=== PATIENT | female | born 1990 | race Caucasian/White ===

== ENCOUNTER 2020-01-19 04:58 | Inpatient (IN) | payer MEDICAID, SELFPAY ==
--- NOTE | 2020-01-12 09:54 | P.ANESASSM_ITS ---
Pre-Anesthetic Assessment Pre-Anesthetic Assessment: Preop Diagnosis: IUP Proposed Procedure: Operation Date: 01/19/20 07:00 Proposed Procedures p Section Repeat With Tubal(Not Applicable) - Rinku Hale MD Familial anesthetic complications: None Social: Social History: No alcohol and No tobacco Exam: Pre-Anes Outpt Exam: alert, oriented x 3, clear to auscultation bilaterally and regular rate & rhythm Airway: Cervical ROM: WNL MP: 2 Dentition: Full Anesthetic Plan: ASA status: 2 Anesthesia: Regional (specify below) (sp inal) Risk of > 500 ml blood loss (7ml/kg in children): Yes, adequate IV access and fluids planned Data Anesthesia Cardiac Studies: No Data to Display
[2020-01-19] VITALS (27 sets, daily range): BP systolic 101–141; BP diastolic 59–82; PULSE 71–109; RESP 14–20; TEMP 36.2–36.8; O2SAT 94–99; BMI 40.1
[2020-01-19 05:39] LABS: Basophils # 0.1 10^3/uL (0.0-0.1); Basophils % 0.6 %; Eosinophils # 0.2 10^3/uL (0.0-0.8); Hematocrit 33.8 % (37.0-47.0); Hemoglobin 10.6 g/dL (11.5-15.3); Lymphocytes # 1.7 10^3/uL (0.8-4.8); Lymphocytes % 22.1 %; Mean Corpuscular HGB Conc 31.4 g/dL (30.0-36.0); Mean Corpuscular Hemoglobin 25.7 pg (28.0-34.0); Mean Platelet Volume 10.4 fL (7.4-10.4); Monocytes # 0.6 10^3/uL (0.2-0.9); Neutrophils # 5.35 10^3/uL (1.8-7.7); Neutrophils % 68.2 %; Nucleated Red Blood Cells % 0 %; Platelet Count 213 10^3/cmm (130-400); Red Blood Count 4.12 10^6/uL (4.1-5.3); Red Cell Distribution Width 14.5 % (12.1-15.1); White Blood Count 7.9 10^3/uL (4.0-10.0)
--- NOTE | 2020-01-19 06:27 | P.HP_ITS ---
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 She is presenting for a repeat section and a bilateral tubal ligation. Her has been unremarkable. Her blood type is B+. She is GBS negative. She is COVID negative. Her glucose screen was within normal limits. The remainder of her labs were within normal limits as well. She has been no concerns during her . Her due date is based on a first trimester ultrasound. We have discussed the risks and alternatives to a repeat section as well as a bilateral tubal ligation. Present Details : 3 Para: 2 Labs Rubella: Immune RPR: Negative GBS: Negative Review of Systems General: Reports: 10 or more systems reviewed and unremarkable except in HPI and below Const: Denies: fever(s) Card: Denies: chest pain or irregular heart rhythm Resp: Denies: dyspnea GI: Reports: heartburn : Reports: other (Vaginal pressure) Medications/Allergies Allergies Allergy/AdvReac Type Severity Reaction Status Date / Time No Known Drug Allergies Allergy NONE Verified 01/19/20 05:28 Vitals/I&O/Wt Last Vital Signs Temp 97.8 F 01/19/20 05:16 Pulse 100 01/19/20 05:49 BP 126/69 01/19/20 05:49 Weight last 48 hrs Weight 256 lb Physical Exam Const: COMMON NORMALS: no acute distress and patient oriented x3 GENERAL APPEARANCE: cooperative, comfortable and well developed HENMT: COMMON NORMALS: normocephalic and moist oral mucous membranes HEAD & SCALP: normocephalic Chest: COMMONS NORMALS: normal inspection of the chest Resp: COMMON NORMALS: normal respiratory effort and clear to auscultation bilaterally AUSCULTATION: clear to auscultation bilaterally Cardio: COMMON NORMALS: regular rate, regular rhythm, No gallops present (Cardio), No murmurs present (Cardio) and No rub (Cardio) RATE: regular rate RHYTHM: regular rhythm Extremity: COMMON NORMALS: normal to inspection Neuro: COMMON NORMALS: patient oriented x3 and no focal motor deficits Skin: COMMON NORMALS: no rashes or lesions noted GENERAL SKIN EXAM: no rashes or lesions noted Data : 01/19/20 05:25 A&P Assessment and plan (1) Previous section: Status: Acute (2) 39 weeks gestation of : Status: Acute (3) Sterilization consult: Status: Acute Attestations Medical Necessity Statement*: I anticipate routine and post C- section care Coding Level of Care Code Acute 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
[2020-01-19] MEDS: lactated ringers 1,000 ML 125 ML IV (06:43)
[2020-01-19] MEDS: citric acid-sodium citrate 30 mL UDC PO (06:46)
[2020-01-19] MEDS: famotidine 20 mg/2 mL INJ IVP (06:47)
[2020-01-19] MEDS: metoclopramide 5 mg/mL SDV 2 mL 10 MG IVP (06:47)
[2020-01-19] MEDS: lactated ringers 1,000 ML 999 ML IV (06:49)
--- NOTE | 2020-01-19 07:02 | PC.NURSE ---
Pt to OR at this time.
--- NOTE | 2020-01-19 08:25 | PM.OP ---
Operative Report Date of procedure: January 19, 2020 Pre-op Diagnosis: IUP, previous , desires sterilization, 39 weeks Post-op diagnosis: same Procedure Done: 1. Repeat lower transverse section 2. Intraoperative bilateral tubal ligation using a modified Dafne technique Specimens removed/disposition: 1. Female with a weight of 7 pounds 1 ounces and Apgars of 8 9 2. Placenta with a three-vessel cord delivered intact 3. Bilateral fallopian tube segments with the right segment being tagged Pathology: other (Bilateral fallopian tube segments with the right segment being tagged) Surgeon: Rinku Hale Anesthesia: Other (Spinal) Estimated blood loss (mL): 600 Condition: stable Disposition: floor (OB) Brief History: Refer to history and physical Procedure: The patient was brought back to the operating room where she was prepped and draped in usual sterile fashion. Anesthesia was found to be adequate. A lower transverse skin incision was then made with a #10 blade. I then dissected down to the underlying subcutaneous tissue until arriving at the prerectal fascia. The fascia was then nicked with the scalpel bilaterally. The fascial incisions were then carried laterally with Conteh scissors. Attention was then turned to the superior aspect of the incision which was grasped with kochers and tented up away from the underlying rectus abdominis muscles. The muscles were then dissected away from the fascia manually, and later with Conteh scissors. Attention was then turned to the inferior aspect of the incision, and the fascia was dissected away from the underlying muscle in similar fashion. The rectus abdominis muscles were then spread manually. The peritoneum was entered manually. Excellent visualization of the uterus was noted. A lower transverse uterine incision was then made with a #10 blade. Upon arriving at the intrauterine cavity, the uterine incision was then extended manually. The was noted to be in vertex position. I had some difficulty delivering the head, as result used a vacuum. I had 3 consecutive pull offs without delivery of the head. I was unable to maneuver the head with uterine pressure to deliver the head and the baby. There was no meconium. But the baby did pass meconium shortly after delivery. There was a nuchal cord x1.. The cord was cut and clamped. The mouth and nose were suctioned. The baby was then handed to the waiting nurse. The placenta was removed intact. The intrauterine cavity was cleansed of any remaining debris. The uterine incision was reapproximated in 2 layers. The first layer was performed with 0 Vicryl in a running locked stitch. The second layer was an imbricating stitch also using 0 Vicryl. Attention was then turned to the fallopian tubes for the tubal ligation. The right tube was identified and followed through to the fimbria. I then ligated cut and cauterized the fallopian tube with oh plain in a modified Dafne fashion. Attention was then turned to the left fallopian tube which was once again followed through the fimbria and ligated cut and cauterized in similar fashion. The peritoneum was then irrigated with warm saline. I reexamined the uterine incision and found it to be hemostatic. The rectus abdominis muscles were then reapproximated using 0 Vicryl in a running stitch. The fascia was then reapproximated using 0 Vicryl in running stitch. The subcutaneous tissue was then reapproximated using 0 Vicryl in a running stitch. 4-0 Vicryl was then used in a subcuticular stitch to reapproximate the skin. Steri-Strips were placed. A sterile dressing was placed. All counts were correct x2. Both the mother and baby were in stable condition.
[2020-01-19] MEDS: dextrose 5%-lactated ringers 1,000 ML 125 ML IV (11:24)
[2020-01-19] MEDS: ketorolac 30 mg/mL INJ IVP (16:02)
[2020-01-19] MEDS: docusate sodium 100 mg Capsule PO (18:07)
[2020-01-19 20:58] LABS: Hematocrit 30.3 % (37.0-47.0); Hemoglobin 9.4 g/dL (11.5-15.3); Mean Corpuscular Volume 83.9 fL (81-99); Mean Platelet Volume 10.6 fL (7.4-10.4); Platelet Count 220 10^3/cmm (130-400); Red Blood Count 3.61 10^6/uL (4.1-5.3); Red Cell Distribution Width 14.4 % (12.1-15.1); White Blood Count 12.9 10^3/uL (4.0-10.0)
[2020-01-20 04:00] VITALS: BP 106/55; PULSE 80; RESP 16
--- NOTE | 2020-01-20 07:57 | PM.OBGYDC ---
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 The procedure was unremarkable. Her postoperative course was also unremarkable. Her bleeding has been within normal limits. Her urine output has been good. Her vitals have been good. She will advance her diet today. And as long as she passes gas today, we will let her go home this afternoon or evening. Information Peripartum Data: Delivery Method: Section Physical Exam Narrative: EXAM NARRATIVE: She is in no acute distress Lungs are clear auscultation bilaterally Her heart has a regular rate and rhythm Her fundus is below the umbilicus and firm Her dressing is clean, dry and intact Her extremities have trace edema Urinary Catheter Management^: Hinojosa: Cath Placed During This Visit: yes, but has since been removed by the nurse Reason for Continuing Indwelling Catheter: Decision to DC Catheter Urinary Catheter Date of Insertion: 01/19/20 Urinary Catheter Time of Insertion: 07:13 Date Urinary Catheter Removed: 01/19/20 Time Urinary Catheter Discontinued: 22:05 Discharge Data Data Completed and Pending: Labs from last 24 hours 01/19/20 01/19/20 20:24 05:25 WBC 12.9 H RBC 3.61 L Hgb 9.4 L Hct 30.3 L MCV 83.9 MCH 26.0 L MCHC 31.0 RDW 14.4 Plt Count 220 MPV 10.6 H Blood Type B Positive Rho(D) Type Positive Antibody Screen Negative Vitals: Last Vital Signs Temp 97.8 F 01/19/20 17:12 Pulse 80 01/20/20 04:00 Resp 16 01/20/20 04:00 BP 106/55 01/20/20 04:00 Pulse Ox 96 01/19/20 15:15 Discharge Plan Discharge Patient Disposition: Home Condition: Stable Prescriptions: New ibuprofen 800 mg Tablet 800 mg PO TID 30 Days Qty: 45 RF: 0 hydrocodone-acetaminophen 5-325 mg Tablet 1 - 2 tab PO Q4H PRN (Reason: Moderate To Severe Pain) Qty: 20 RF: 0 -U 106.5-1 mg Capsule 1 cap PO BREAKFAST Qty: 90 RF: 0 Discharge Orders: Discharge Order (Routine); Ordered 01/20/20 Ordered By: Rinku Hale Referrals: Rinku Hale MD [Primary Care Provider] - 4-7 days (* Your incision check is with Dr. Hale on 01/23/2020 at 10:30am. 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
[2020-01-20] MEDS: docusate sodium 100 mg Capsule PO (08:16)
[2020-01-20] MEDS: prenatal vitamin Capsule 1 CAP PO (08:16)
[2020-01-20] MEDS: ferrous sulfate EC 325 mg Tablet PO (08:17)
--- NOTE | 2020-01-20 10:03 | ANE.PACU2 ---
Inpatient post-anesthesia follow up: Airway intact: Yes Vital signs: Temperature 97.8 F Pulse Rate 80 Respiratory Rate 16 Blood Pressure 106/55 Pulse Oximetry 96 Oxygen Delivery Me thod Room Air Oxygen Flow Rate Fraction of Inspir ed Oxygen Hydration adequate: Yes Nausea and vomiting: No Pain level: 2 Mental status: Baseline Additional Comments: no headaches, no backpain, no signs of infection at neuraxial site, urinating ok, no lower extremity numbness/weakness
[2020-01-20 10:37] VITALS: BP 101/59; PULSE 80; RESP 16; TEMP 36.7; O2SAT 94
[2020-01-20 15:50] VITALS: BP 111/67; PULSE 82; RESP 16; TEMP 36.6; O2SAT 94
== END 2020-01-20 16:10 | disposition home or self-care (01) | DRG 785 ==
PROVIDERS: Admitting Provider Family Medicine; PCP Family Medicine; Visit Provider Family Medicine
PROC: 10D00Z1 Extraction of Products of Conception, Low, Open Approach (ICD-10-PCS; CPT 59514; principal; 2020-01-19 07:00)
DX: O34.211 Maternal care for low transverse scar from previous cesarean delivery (principal); N85.8 Other specified noninflammatory disorders of uterus; Z3A.39 39 weeks gestation of pregnancy; Z37.0 Single live birth; Z30.2 Encounter for sterilization; Z20.828 Contact with and (suspected) exposure to other viral communicable diseases
CPT/HCPCS: 12345; 36415; 51702; 58611; 59025; 59409; 85025; 85027; 86850; 86900; 88302; 96375; J0690; J1100; J1885; J2274; J2405; J2765; J3490